=== PATIENT | male | born 1990 ===

== ENCOUNTER 2017-03-08 13:58 | Inpatient (IN) | payer MEDICAID, OTHER ==
[2017-03-08 14:01] VITALS: BMI 18.2
[2017-03-08 14:50] LABS: EOS # 0.1 K/uL (0.0-0.7); EOS % 2.4 % (0.0-4.0); HEMATOCRIT 56.6 % (35.0-51.0); LYMPH # 1.8 K/uL (1.0-4.3); LYMPH % 48.5 % (20.0-40.0); MEAN CELL VOLUME 89.7 fL (80.0-94.0); MEAN CORPUSCULAR HEMOGLOBIN 29.6 pg (27.0-31.0); MONO # 0.4 K/uL (0.0-0.8); MONO % 9.9 % (0.0-10.0); NRBC % 0.2 % (0.0-2.0); RED CELL DISTRIBUTION WIDTH 13.5 % (11.5-14.5); WHITE BLOOD COUNT 3.8 K/uL (4.8-10.8)
[2017-03-08 14:55] LABS: RBC URINE 1 /hpf (0-3); URINE BILIRUBIN NEGATIVE (NEGATIVE); URINE BLOOD 1+ (NEGATIVE); URINE COLOR Yellow (YELLOW); URINE GLUCOSE (UA) NORMAL (Normal); URINE KETONE NEGATIVE (NEGATIVE); URINE LEUKOCYTE ESTERASE NEG Leu/uL (Negative); URINE PROTEIN NEGATIVE (NEGATIVE); URINE UROBILINOGEN NORMAL mg/dL (0.2-1.0); WBC URINE 1 /hpf (0-5)
[2017-03-08 15:04] LABS: CHLORIDE 100 mmol/L (98-107)
[2017-03-08 15:05] LABS: POTASSIUM 4.1 mmol/L (3.6-5.2); SODIUM 141 mmol/L (132-148)
[2017-03-08 15:07] LABS: ALB/GLOB RATIO 1.2 (1.0-2.1); ALKALINE PHOSPHATASE 68 U/L (38-126); ALT/SGPT 24 U/L (21-72); AST/SGOT 29 U/L (17-59); BILIRUBIN,TOTAL 0.8 mg/dL (0.2-1.3); BLOOD UREA NITROGEN 10 mg/dL (9-20); CARBON DIOXIDE 26 mmol/L (22-30); GFR AFRICAN-AMERICAN > 60; GLUCOSE,RANDOM 97 mg/dL (75-110); TOTAL PROTEIN 8.3 g/dL (6.3-8.3)
[2017-03-08 15:08] LABS: ALCOHOL SERUM < 10 mg/dl (0-10); CALCIUM 9.5 mg/dl (8.6-10.4)
--- NOTE | 2017-03-08 15:36 | C.PDOC ---
History Of Present Illness 26 year old male with a history of depression presents to the with complaints of suicidal ideation and intermittent auditory hallucinations. Patient has previously attempted suicide in October by trying to jump off a roof. He has no physical complaints at this time. Chief Complaint (Nursing): Psychiatric Evaluation History Per: Patient History/Exam Limitations: no limitations Onset/Duration Of Symptoms: Days Current Symptoms Are (Timing): Still Present Modifying Factor(s): None Associated Symptoms: Suicidal Thoughts Past Medical History Reviewed: Historical Data, Nursing Documentation, Vital Signs Vital Signs: Last Vital Signs Temp 99.1 F 03/08/17 14:07 Pulse 51 L 03/08/17 14:07 Resp 16 03/08/17 14:07 BP 138/78 03/08/17 14:07 Pulse Ox 96 03/08/17 15:38 - Medical History PMH: Depression, Kidney Stones Family History: States: Unknown Family Hx - Social History Hx Alcohol Use: Yes Hx Substance Use: Yes - Immunization History Hx Tetanus Toxoid Vaccination: No Hx Influenza Vaccination: No Hx Pneumococcal Vaccination: No Review Of Systems Except As Marked, All Systems Reviewed And Found Negative. Constitutional: Negative for: Fever, Chills Gastrointestinal: Negative for: Vomiting Psych: Positive for: Psychosis (+Auditory hallucinations), Suicidal ideation Physical Exam - Physical Exam Appears: Non-toxic, No Acute Distress Skin: Normal Color, Warm, Dry Head: Atraumatic, Normacephalic Eye(s): bilateral: Normal Inspection Oral Mucosa: Moist Chest: Symmetrical, No Deformity Cardiovascular: Rhythm Regular, No Murmur Respiratory: Normal Breath Sounds, No Accessory Muscle Use Extremity: Normal ROM Neurological/Psych: Oriented x3, Normal Speech ED Course And Treatment - Laboratory Results Result Diagrams: 03/08/17 14:44 03/08/17 14:44 O2 Sat by Pulse Oximetry: 96 (Room air) Pulse Ox Interpretation: Normal Progress Note: Blood work and Urinalysis ordered and reviewed. Patient placed on 1:1. Case discussed with the crisis home care consultant who agreed to evaluate the patient. Patient is medically cleared for Psych evaluation/admission. Patient was accepted by for admission. Disposition - Disposition Disposition: HOSPITALIZED Disposition Time: 17:29 Condition: STABLE - Clinical Impression Clinical Impression: Schizophrenia, Suicidal ideations - PA / [employer] / Resident Statement MD/DO has reviewed & agrees with the documentation as recorded. - Scribe Statement The provider has reviewed the documentation as recorded by the Scribe Frederick De Souza. All medical record entries made by the Scribe were at my direction and personally dictated by me. I have reviewed the chart and agree that the record accurately reflects my personal performance of the history, physical exam, medical decision making, and the department course for this patient. I have also personally directed, reviewed, and agree with the discharge instructions and disposition. Decision To Admit - Pt Status Changed To: Hospital Disposition Of: Inpatient - Admit Certification Admit to Inpatient:: After my assessment, the patient will require hospitalization for at least two midnights. This is because of the severity of symptoms shown, intensity of services needed, and/or the medical risk in this patient being treated as an outpatient. - InPatient: Physician Admission Certification: I certify that this patient requires 2 or more midnights of care for the following reason:: Patient will need more than 2 days of admission to stabilize his condition. - . Bed Request Type: Psychiatry Admitting Physician: Boone Del Castillo Patient Diagnosis: Schizophrenia, Suicidal ideations
--- NOTE | 2017-03-09 10:11 | PCM.PSYCH ---
Initial Psychiatric Evaluation - Initial Psychiatric Evaluation Type of Admission: Voluntary Legal Status: Capacity Chief Complaint (in patient's own words): I'm hearing voices to kill myself and kill people. History of Present Illness and Precipitating Events: 26 yo HM unemployed patient, living with his mother and has a h/o SCPT presents with a chief complaint of hearing voices telling him to shoot or stab someone, and kill himself. pt was seen and interviewed with the help of a cotton ginner. Pt remained disorganized and internally preoccupied throughout the interview. He appeared suspicious and delusional. Pt describes hearing multiple voices, they speak loud and clear, hears them 1-3 times a day, was woken up by voices 3-4 times. When he does not hear voices he reports he is sometimes able to function. Two of the voices include the devil and god. Devil tells him he will leave him alone if he completes the devil's list, which includes burning a house with a family inside with the list of people, patient tries to ignore the voice. Last time he heard the devil was Sunday, he said the patient must kill someone and he will leave him alone, and will try to give him plans to do so. God tells him to behave, not listen to the Devil, not to hurt people, his body, and tells him to relax. Voices tell him to kill people via pistol, stabbing with knife, machete. Feels like people are out to get him, including the voices he hears. Attempted suicide when 13 yo via cutting wrists. Last attempted suicide in October while intoxicated via jumping off a building, the voices told him to, however a friend stopped him. Positive for agitation, anxiety. Positive for pacing thoughts that cause headaches, inability to hold a thought, poor concentration. Pt reports of smoking marihuana but denies any other substance abuse. Current Medications: Active Medications Generic Name Dose Route Start Last Admin Trade Name Freq PRN Reason Stop Dose Admin Benztropine Mesylate 0.5 mg 03/08/17 22:00 03/08/17 21:35 Cogentin PO 0.5 mg HS YARELIS Administration Diphenhydramine HCl 50 mg 03/08/17 19:43 03/08/17 21:35 Benadryl PO 50 mg Q6 PRN Administration Insomnia Escitalopram Oxalate 10 mg 03/09/17 10:00 03/09/17 09:48 Lexapro PO 10 mg DAILY YARELIS Administration Haloperidol 5 mg 03/08/17 21:04 Haldol PO Q1H PRN agitation, max 4x/24 Ibuprofen 600 mg 03/08/17 21:04 Motrin Tab PO Q6H PRN Pain, moderate (4-7) Pneumococcal Polyvalent Vaccine 0.5 ml 03/11/17 10:00 Pneumovax 23 Vaccine IM 03/11/17 10:01 .ONCE ONE Risperidone 1 mg 03/08/17 22:00 03/08/17 21:35 Risperdal Tab PO 1 mg HS YARELIS Administration Trazodone HCl 100 mg 03/08/17 21:04 Desyrel PO HS PRN Insomnia Past Psychiatric History - Past Psychiatric History Previous Treatment History: None Prior Professional Help: Hospitalized Prior Psychiatric Treatment: Denies At what hospital: [facility] Date: 11/11/16 Duration: 1 day Nature of Treatment: intoxication History of ETOH/Drug Use: Consumes alcohol, 3-4 24ounce beers on the weekends. Consumes marijuana, began 4 months ago, uses intermittently. Denies cocaine, heroin. History of Family Illness: Denies Pertinent Medical Hx (Current Medical&Sleep Prob, Allergies): Allergies Allergy/AdvReac Type Severity Reaction Status Date / Time No Known Allergies Allergy Verified 03/08/17 14:00 No Known Home Med 11/12/16 Allergies: denies PMH: denies Review of Systems - Review of Systems All systems: reviewed and no additional remarkable complaints except - Psychiatric Psychiatric: Anxiety, Auditory Hallucinations, Homicidal Ideation, Irritability , Mood Swings, Paranoia, Suicidal Ideation Mental Status Examination - Personal Presentation Personal Presentation: Looks stated age - Affect Affect: Broad - Motor Activity Motor Activity: Psychomotor Agitation - Reliability in Providing Information Reliability in Providing Information: Poor, due to alteration in thoughts, Poor , due to altered mood - Speech Speech: Disorganized - Mood Mood: Depressed, Anxious - Formal Thought Process Formal Thought Process: Hallucinations, Delusions, Paranoia, Loosening of associations, Flight of ideas - Hallucinations/Delusions Hallucinations: Auditory Delusions: Persecution - Obsessions/Compulsions Obsessions: No Compulsions: No - Cognitive Functions Orientation: Person, Place, Situation, Time Sensorium: Alert Attention/Concentration: Attentive Abstract Thinking: [place] Estimate of Intelligence: Below average Judgement: Imparied, as evidence by: Poor judgement, Imparied, as evidence by: Lack of insight into illness - Risk Risk: Suicidal, Homicidal, Diminished functioning - Strength & Assets Inventory Strength & Assets Inventory: Family support DSM 5 DX - DSM 5 DSM 5 Diagnosis: Schizoaffective disorder bipolar type Cannabis use disorder mild - Recommended/Plan of Treatment Treatment Recommendations and Plan of Treatment: Schizoaffective disorder bipolar type CBT Psychoeducation Supportive therapy, group therapy, individual therapy Haldol 5 mg by mouth twice a day Cogentin 1 mg PO BID Depakote 250 mg BID Klonopin 0.5 mg by mouth twice a day Trazodone 100 mg by mouth daily at bedtime Cannabis use disorder mild Monitor signs and symptoms Use [place] for abstinence - Smoking Cessation Smoking Cessation Initiated: No
[2017-03-09] MEDS: Divalproex 250 mg DR Tab PO SCH ×2 (10:46→18:30)
[2017-03-10 07:42] VITALS: O2SAT 99
[2017-03-10] MEDS: Divalproex 250 mg DR Tab PO SCH ×2 (09:05→18:20)
[2017-03-11] MEDS: Divalproex 250 mg DR Tab PO SCH ×2 (09:27→19:18)
[2017-03-11] MEDS ORDERED: Pneumococcal 23-Valent Vaccine IM ONE (10:00)
--- NOTE | 2017-03-12 01:13 | PCM.PYCHPN ---
Psychiatric Progress Note - Psychiatric Progress Note Patient seen today, length of contact: 15 min Patient Chief Complaint: i want medicine that will helpme stay calm Problems Identified/Issues Discussed: symptom management need for adherence Medical Problems: nothing acute Diagnostic Results: reviewed Medication Change: No Medical Record Reviewed: Yes Mental Status Examination - Cognitive Function Orientation: Place, Situation, Time Memory: Intact Attention: Poor Concentration: Poor Association: WNL Fund of Knowledge: Poor - Mood Mood: Depressed, Anxious - Affect Affect: Broad - Formal Thought Process Formal Thought Process: Hallucinations, Delusions, Paranoia, Loosening of associations, Flight of ideas - Suicidal Ideation Suicidal Ideation: No - Homicidal Ideation Homicidal Ideation: No Goal/Treatment Plan - Goal/Treatment Plan Need for Continued Stay: Remain at risks for inpatient hospitalization, Discharge may exacerbated symptoms Progress Toward Problem(s) and Goals/Treatment Plan: insight into disease and need for medication Estimated Date of D/C: 03/15/17 - Smoking Cessation Smoking Cessation Initiated: No
--- NOTE | 2017-03-12 01:17 | PCM.PYCHPN ---
Psychiatric Progress Note - Psychiatric Progress Note Patient seen today, length of contact: 15 min Patient Chief Complaint: i nam feeling better but not yet myself Problems Identified/Issues Discussed: aftercare options Medical Problems: nothing acute Diagnostic Results: reviewed Medication Change: No Medical Record Reviewed: Yes Mental Status Examination - Cognitive Function Orientation: Situation, Time Memory: Intact Attention: Poor Concentration: Poor Association: WNL Fund of Knowledge: Poor - Mood Mood: Depressed, Anxious - Affect Affect: Broad - Speech Speech: Appropriate - Formal Thought Process Formal Thought Process: Hallucinations, Paranoia - Suicidal Ideation Suicidal Ideation: No - Homicidal Ideation Homicidal Ideation: No Goal/Treatment Plan - Goal/Treatment Plan Need for Continued Stay: Remain at risks for inpatient hospitalization, Discharge may exacerbated symptoms Progress Toward Problem(s) and Goals/Treatment Plan: feeling more hopeful Estimated Date of D/C: 03/15/17 - Smoking Cessation Smoking Cessation Initiated: No
[2017-03-12] MEDS: Divalproex 250 mg DR Tab PO SCH ×2 (09:39→18:07)
--- NOTE | 2017-03-12 10:30 | PCM.PYCHPN ---
Psychiatric Progress Note - Psychiatric Progress Note Patient seen today, length of contact: 15 min Patient Chief Complaint: i am feeling little better Problems Identified/Issues Discussed: Patient was seen and evaluated. Chart reviewed and discussed with the nurse. Pt was cooperative during the interview. He appears more organized than before but remained a bit internally preoccupied. He reports that his mood is good. He only complains of feeling cold. He denies thoughts of hurting self or others. He denies visual hallucinations but reports improvement in the voices. Patient denies any problems with his appetite and sleeps well during the night. Supportive therapy and PsychEducation were provided. Medication Change: Yes (increas haldol, d/c gabapentin) Medical Record Reviewed: Yes Mental Status Examination - Cognitive Function Orientation: Situation, Time Memory: Intact Attention: WNL Concentration: Poor Association: WNL Fund of Knowledge: Poor - Mood Mood: Depressed, Anxious - Affect Affect: Broad - Speech Speech: Appropriate - Formal Thought Process Formal Thought Process: Hallucinations, Paranoia - Suicidal Ideation Suicidal Ideation: No - Homicidal Ideation Homicidal Ideation: No Goal/Treatment Plan - Goal/Treatment Plan Need for Continued Stay: Remain at risks for inpatient hospitalization, Discharge may exacerbated symptoms Progress Toward Problem(s) and Goals/Treatment Plan: Schizoaffective disorder bipolar type CBT Psychoeducation Supportive therapy, group therapy, individual therapy Haldol 5 mg by mouth daily Haldol 10 mg by mouth daily at bedtime Cogentin 1 mg PO BID Depakote 250 mg BID Klonopin 0.5 mg by mouth twice a day Trazodone 100 mg by mouth daily at bedtime Discontinue gabapentin Cannabis use disorder mild Monitor signs and symptoms Use [place] for abstinence Estimated Date of D/C: 03/15/17 - Smoking Cessation Smoking Cessation Initiated: No
[2017-03-13] MEDS: Divalproex 250 mg DR Tab PO SCH ×2 (09:51→17:52)
--- NOTE | 2017-03-13 10:19 | PCM.PYCHPN ---
Psychiatric Progress Note - Psychiatric Progress Note Patient seen today, length of contact: 15 min Patient Chief Complaint: i am feeling much better Problems Identified/Issues Discussed: Patient was seen and evaluated. Chart reviewed and discussed with the nurse. As per the staff pt appears more organized than before. Reports improvement in his mood and denies any auditory or visual hallucinations. Patient denies any problems with his appetite and sleeps well during the night. Supportive therapy and PsychEducation were provided. Medication Change: Yes (ezio galeas [place] Klonopin) Medical Record Reviewed: Yes Mental Status Examination - Cognitive Function Orientation: Situation, Time Memory: Intact Attention: WNL Concentration: WNL Association: WNL Fund of Knowledge: WNL - Mood Mood: Anxious - Affect Affect: Broad - Speech Speech: Appropriate - Formal Thought Process Formal Thought Process: No Impairment - Suicidal Ideation Suicidal Ideation: No - Homicidal Ideation Homicidal Ideation: No Goal/Treatment Plan - Goal/Treatment Plan Need for Continued Stay: Remain at risks for inpatient hospitalization, Discharge may exacerbated symptoms Progress Toward Problem(s) and Goals/Treatment Plan: Schizoaffective disorder bipolar type CBT Psychoeducation Supportive therapy, group therapy, individual therapy Haldol 10 mg by mouth daily Haldol 10 mg by mouth daily at bedtime Cogentin 1 mg PO BID Depakote 250 mg BID Klonopin 0.5 mg by mouth twice a day Trazodone 100 mg by mouth daily at bedtime Cannabis use disorder mild Monitor signs and symptoms Use [place] for abstinence Estimated Date of D/C: 03/15/17 - Smoking Cessation Smoking Cessation Initiated: No
[2017-03-14] MEDS: Divalproex 250 mg DR Tab PO SCH ×2 (09:38→17:23)
--- NOTE | 2017-03-14 10:17 | PCM.PYCHDC ---
Mental Status Examination - Mental Status Examination Orientation: Person, Place, Situation, Time Memory: Intact Mood: Neutral Affect: Constricted Speech: Soft Attention: WNL Concentration: WNL Association: WNL Fund of Knowledge: WNL Formal Thought Process: No Impairment Description of patient's judgement and insight: good, fair Psychotic Thoughts and Behaviors: denies any AVH Suicidal Ideation: No Current Homicidal Ideation?: No Discharge Summary - Discharge Note Reason for Hospitalization: 26 yo HM unemployed patient, living with his mother and has a h/o SCPT presents with a chief complaint of hearing voices telling him to shoot or stab someone, and kill himself. pt was seen and interviewed with the help of a conservation specialist. Pt remained disorganized and internally preoccupied throughout the interview. He appeared suspicious and delusional. Pt describes hearing multiple voices, they speak loud and clear, hears them 1-3 times a day, was woken up by voices 3-4 times. When he does not hear voices he reports he is sometimes able to function. Two of the voices include the devil and god. Devil tells him he will leave him alone if he completes the devil's list, which includes burning a house with a family inside with the list of people, patient tries to ignore the voice. Last time he heard the devil was Sunday, he said the patient must kill someone and he will leave him alone, and will try to give him plans to do so. God tells him to behave, not listen to the Devil, not to hurt people, his body, and tells him to relax. Voices tell him to kill people via pistol, stabbing with knife, machete. Feels like people are out to get him, including the voices he hears. Attempted suicide when 13 yo via cutting wrists. Last attempted suicide in October while intoxicated via jumping off a building, the voices told him to, however a friend stopped him. Positive for agitation, anxiety. Positive for pacing thoughts that cause headaches, inability to hold a thought, poor concentration. Pt reports of smoking marihuana but denies any other substance abuse. result Psychiatric History (includes Medical, Family, Personal Hx): intoxication Consultations:: List each consultation separately and include: 1. Reason for request. 2. Findings. 3. Follow-up Summary of Hospital Course include:: 1. Description of specific treatment plan utilized for patients during their course of treatmen. 2. Summarize the time- course for resolution of acute symptoms and/or regressed behaviors. 3. Describe issues identified and worked on during hospitalization. 4. Describe medication utilized. 5. Describe medical problems identified and treated. 6. Reassessment of suicide risk Summary of Hospital Course: During the course of his stay, patient (pt) started progressively improving and he no longer remained irritable, depressed, suicidal and paranoid. His mood and paranoia were improved and he started attending groups and meetings and started socializing. He started taking care of his hygiene and ADLs, and he no longer remained disheveled and malodorous. Patient denied any feelings of hopelessness , helplessness, and worthlessness, denied any problem with the sleep or appetite , denied suicidal ideation or homicidal ideation. Pt denied any auditory or visual hallucinations. Some changes were made in his current medications and patient was discharged on following medications. He tolerated these medications very well and denied any side effects. - Final Diagnosis (DSM 5) Condition upon Discharge: STABLE DSM 5: Schizoaffective disorder bipolar type Disposition: HOME/ ROUTINE Follow-up Treatment Plan: Education: Pt was educated and counseled about the risks and benefits of taking and not taking medications. Pt was educated and counseled about the risks of drinking and abusing drugs. Pt was educated and counseled to go to the ER or call 911 if pt develop suicidal ideation or homicidal ideation, worsening of symptoms or severe side effects of the meds. Prescriptions/Medication Reconciliation: Benztropine [Cogentin] 1 mg PO BID #60 tab Divalproex [Depakote DR] 250 mg PO BID #60 tcp Haloperidol [Haldol] 10 mg PO BID #60 tab traZODone [Desyrel] 100 mg PO HS PRN #30 tab PRN Reason: Insomnia - Smoking Cessation Smoking Cessation Medication prescribed: No - Antipsychotic Medications Pt discharged on 2 or more routine antipsychotic medications: No
[2017-03-14 14:16] VITALS: RESP 19; TEMP 98
[2017-03-14 15:23] VITALS: BP 131/80; PULSE 97
== END 2017-03-14 17:30 | disposition home or self-care (01) | DRG 430 ==
LOC: C.ER 13:58 → C.5E 17:31
PROVIDERS: ADMIT Psychiatry & Neurology Psychiatry; ATTEND Psychiatry & Neurology Psychiatry
PROC: GZ63ZZZ Other Counseling (ICD-10-PCS; principal; 2017-03-09)
PROC: GZHZZZZ Group Psychotherapy (ICD-10-PCS; 2017-03-09)
PROC: GZ58ZZZ Individual Psychotherapy, Cognitive-Behavioral (ICD-10-PCS; 2017-03-09)
PROC: GZ56ZZZ Individual Psychotherapy, Supportive (ICD-10-PCS; 2017-03-09)
DX: F25.0 Schizoaffective disorder, bipolar type (principal); R45.851 Suicidal ideations; R45.850 Homicidal ideations; F12.90 Cannabis use, unspecified, uncomplicated; F41.9 Anxiety disorder, unspecified